=== PATIENT | male | born 1950 | race African-American/Black ===

== ENCOUNTER → 2017-01-01 | Outpatient (CLI) | payer MEDICARE ==
[2016-04-13 16:37] VITALS: BP 154/87
[~2017-01-01] MED LIST: AMLO10TA4 PO; CEFE2VIA5 IV; CHLORTHALIDONE PO; DEXA0.5E2 PO; Hydrocodone Bit/Acetaminophen PO; LISI-334 PO; METF1000 PO; METO50TA29 PO; RIFA300C3 PO; [UNRECOGNIZED DRUG - CODE] IV
== END | disposition home or self-care (01) ==
LOC: LAB 09:12
PROVIDERS: ATTEND Internal Medicine Cardiovascular Disease
DX: I10 Essential (primary) hypertension (principal); I25.10 Atherosclerotic heart disease of native coronary artery without angina pectoris; E78.5 Hyperlipidemia, unspecified
CPT/HCPCS: 80061

== ENCOUNTER → 2017-12-19 | Outpatient (CLI) | payer MEDICARE ==
[2016-04-13 16:37] VITALS: BP 154/87
[~2017-12-19] MED LIST changes: +VANC1.5P20 IV; -[UNRECOGNIZED DRUG - CODE] IV
--- NOTE | 2017-12-19 10:12 | RAD ---
EXAM: 1. KNEE STANDING BILAT AP. 2. LATERAL VIEW LEFT KNEE. HISTORY: Left knee pain. COMPARISON: None. FINDINGS: There are changes of right total knee arthroplasty in expected alignment. No fractures are identified on the right. There is moderate to severe medial compartment predominant tricompartmental osteoarthritis of the left knee. There are multiple large loose bodies posterior to the left knee joint, likely within a popliteal cyst. These measure up to 2.5 cm. A Alessandro-Stieda lesion is noted on the left. No fractures are identified. Alignment is maintained. There is a moderate to large joint effusion. Mild atherosclerotic calcifications are noted. IMPRESSION: 1. Moderate to severe medial compartment predominant tricompartmental osteoarthritis of the left knee. 2. Large loose bodies in a popliteal cysts measure up to 2.5 cm. 3. Moderate to large left knee effusion. 4. Right total knee arthroplasty in expected alignment. Electronically signed by: Abhijit Abbasi MD (12/19/2017 10:09 AM) [facility]
== END | disposition home or self-care (01) ==
LOC: RAD 09:13
PROVIDERS: ATTEND Family Medicine
DX: M17.12 Unilateral primary osteoarthritis, left knee (principal); M76.42 Tibial collateral bursitis [Pellegrini-Stieda], left leg; M67.864 Other specified disorders of tendon, left knee; I70.0 Atherosclerosis of aorta
CPT/HCPCS: 73565